=== PATIENT | female | born 1995 | race Caucasian/White ===

== ENCOUNTER 2017-07-08 01:32 | Emergency (ER) | payer SELFPAY ==
[~2017-07-08] VITALS: Ht 167.6 cm; Wt 59.0 kg
[2017-07-08 02:47] LABS: Basophils # (auto) 0 uL; Basophils % (auto) 0.9 % (0.0-2.0); Eosinophils # (auto) 0.1 uL; Lymphocytes # (auto) 1.9 uL; Monocytes # (auto) 0.5 uL; Neutrophils # (auto) 2.4 uL; Neutrophils % (auto) 48.5 % (37.0-80.0); Nucleated Red Blood Cells % 0.1 %
[2017-07-08 02:50] LABS: Eosinophils % (auto) 2.2 % (0.0-7.0); Hematocrit 36.3 % (36.0-46.0); Hemoglobin 12.1 g/dL (12.2-16.2); Mean Corpuscular Hemoglobin 26.4 pg (28.0-32.0); Mean Corpuscular Hgb Conc. 33.2 g/dL (32.0-36.0); Mean Corpuscular Volume 79.5 fL (80.0-100.0); Mean Platelet Volume 8.1 fL (6.9-10.8); Monocytes % (auto) 10.4 % (0.0-12.0); Platelet Count (auto) 259 10^3/uL (140-450); Red Cell Distribution Width 14.3 % (11.8-14.3)
[2017-07-08 03:07] LABS: Bilirubin, Total 0.4 mg/dL (0.2-1.0); Calcium 8.9 mg/dL (8.5-10.1); Potassium 3.8 mmol/L (3.5-5.1); Total Protein 8.1 g/dL (6.4-8.2)
[2017-07-08 03:58] LABS: Urine RBC None Seen /hpf (0 - 4)
[2017-07-08 04:03] LABS: Urine Bilirubin Negative (Negative); Urine Blood Negative /uL (Negative); Urine Color Yellow (Yellow); Urine Glucose Normal (Normal); Urine Ketone Negative (Negative); Urine Mucus FEW (None Seen); Urine Nitrite Negative (Negative); Urine Squamous Epithelial Cell FEW /hpf (<5); Urine Urobilinogen Normal (Negative)
[2017-07-08 09:39] VITALS: BP 102/58
== END 2017-07-08 10:26 | disposition home or self-care (01) ==
LOC: ER 01:32
DX: K58.8 Other irritable bowel syndrome (principal)
CPT/HCPCS: 36415; 74176; 80053; 81001; 81025; 85025

== ENCOUNTER 2020-04-21 04:47 | Observation (INO) | payer MEDICAID ==
[~2020-04-21] VITALS: Ht 167.6 cm; Wt 57.2 kg
[2020-04-21] MEDS ORDERED: ACETAMINOPHEN 325 MG TAB PO ONE (06:45)
[2020-04-21] MEDS ORDERED: TERBUTALINE SULFATE 1 MG/ML 1ML VIAL SC ONE ×2 (07:00→07:09)
[2020-04-21] MEDS ORDERED: LACTATED RINGER'S 1,000 ML IV ONE (07:00)
== END 2020-04-21 08:44 | disposition home or self-care (01) ==
LOC: LDRP 04:47
PROVIDERS: ADMIT Specialist; ATTEND Specialist
DX: O26.892 Other specified pregnancy related conditions, second trimester (principal); R10.9 Unspecified abdominal pain; Z3A.20 20 weeks gestation of pregnancy; Z79.899 Other long term (current) drug therapy
CPT/HCPCS: 59025; 76805; 80307; 81001; 81002; 87086; 94760; 96360; 96361; 96372; G0378; J3105

== ENCOUNTER 2024-08-24 20:35 | Observation (INO) | payer MEDICAID ==
[~2024-08-24 20:35] MED LIST: NITR-87 PO
--- NOTE | 2024-08-25 03:56 | DVHDS2 ---
Physician Discharge Progress N Final Diagnosis: 37.3 weeks gestation Not in active labor Condition on Discharge: Good Disposition: Home Discharge Instructions: Diet: Regular Activity: No Restrictions, As Tolerated Follow Up/Referral: RTH PRN Medications: vits Follow Up Care: Discharge Statement: Labor precautions, kick counts, warning signs reviewed. RTC as scheduled. RTH PRN "Patient was advised to return to the ER or call 911 if any headaches, dizziness, shortness of breath, chest pain, abdominal pain, bleeding, fevers, or worsening of medical condition. Patient was counseled about treatment plan, medications, possible side effects, patientverbalized understanding. All questions were answered to the best of my ability. This discharge took greater then 30 minutes in planning, reviewing documentation, counseling the patient, and discussing with other team members." ALEIDA FRASER CNM Aug 25, 2024 03:56
== END 2024-08-24 23:44 | disposition home or self-care (01) ==
LOC: LDRP 20:35
PROVIDERS: ADMIT Obstetrics & Gynecology; ATTEND Obstetrics & Gynecology
DX: O62.9 Abnormality of forces of labor, unspecified (principal); Z98.890 Other specified postprocedural states; Z79.899 Other long term (current) drug therapy; Z3A.37 37 weeks gestation of pregnancy
CPT/HCPCS: 59025; 81002; 94760; G0378